=== PATIENT | female | born 1990 | race Caucasian/White ===

== ENCOUNTER 2016-11-22 16:04 | Emergency (ER) | payer OTHER ==
[~2016-11-22] VITALS: Wt 52.0 kg
[2016-11-22 16:57] LABS: URINE BLOOD (Dip) POC 2+ (NEGATIVE)
[2016-11-22] MEDS ORDERED: ACETAMINOPHEN 500 MG TAB PO STA (17:07)
[2016-11-22] MEDS ORDERED: PHEN-538 PO (17:09)
[2016-11-22] MEDS ORDERED: CEPH-443 PO (17:09)
--- NOTE | 2016-11-22 17:15 | ERD ---
ER Documentation Chief Complaint Date/Time DATE: 11/22/16 TIME: 17:13 Chief Complaint DYSURIA X 3 DAYS HPI This 26-year-old female presents with dysuria for last 3 days. She has some mild nausea but no vomiting or fevers. She has flank pain significant abdominal pain. She had some mild left lower abdominal pain 2 days ago but that resolved. Her pain is primarily suprapubic associated with dysuria currently. She has never had a history of UTI. ROS All systems reviewed and are negative except as per history of present illness. Medications Home Meds Active Scripts Phenazopyridine Hcl* (Pyridium*) 200 Mg Tab, 200 MG PO TID Y for URINARY PAIN, # 6 TAB Prov:ROSE COX MD 11/22/16 Cephalexin* (Keflex*) 500 Mg Capsule, 500 MG PO QID for 5 Days, CAP Prov:ROSE COX MD 11/22/16 Allergies Allergies: Coded Allergies: No Known Drug Allergies (Verified Allergy, Unknown, 11/22/16) PMhx/Soc Medical and Surgical Hx: pt denies Medical Hx, pt denies Surgical Hx Physical Exam Vitals Vital Signs Date Time Temp Pulse Resp B/P Pulse Ox O2 Delivery O2 Flow Rate FiO2 11/22/16 16:08 98.0 71 18 114/61 99 Physical Exam Const: [] Alert, [id number]. Head: Atraumatic Eyes: Normal Conjunctiva ENT: Normal External Ears, Nose and Mouth. Neck: Full range of motion..~ No meningismus. Resp: Clear to auscultation bilaterally Cardio: Regular rate and rhythm, no murmurs Abd: Soft, minimal suprapubic tenderness., non distended. Normal bowel sounds Skin: No petechiae or rashes Back: No midline or flank tenderness Ext: No cyanosis, or edema Neur: Awake and alert Psych: Normal Mood and Affect Results 24 hrs Laboratory Tests Test 11/22/16 16:58 Bedside Urine Blood 2+ Bedside Urine Glucose (UA) Negative Bedside Urine Ketones (LAB) Negative Bedside Urine Leukocyte Esterase (L 1+ Bedside Urine Nitrite (LAB) Negative Bedside Urine Protein (LAB) 2+ Bedside Urine pH (LAB) 6.5 Current Medications Medications (Trade) Dose Ordered Sig/Rey Route PRN Reason Start Time Stop Time Status Last Admin Dose Admin Cephalexin (Keflex) 500 mg ONCE ONCE PO 1/27/17 17:30 11/22/16 17:31 UNV Phenazopyridine HCl (Pyridium) 200 mg ONCE ONCE PO 11/22/16 17:30 11/22/16 17:31 UNV Acetaminophen (Tylenol Tab) 500 mg ONCE STAT PO 11/22/16 17:07 11/22/16 17:08 UNV Procedures/MDM Urine shows positive leukocytes and hemoglobin. HCG is negative. Patient has signs and symptoms of acute cystitis. Patient was given Keflex 500 mg by mouth and Pyridium as well as Tylenol. Patient was discharged home with prescription of Keflex, instructions for fluids and Pyridium. Patient is advised to return for fevers, vomiting, new worsening symptoms with primary care doctor this week. The patient was stable with no new complaints during the ER course. Clinically, there is no current evidence to suggest meningitis, sepsis, acute abdomen, pneumonia, acute coronary syndrome, pulmonary embolism, or any other emergent condition appearing to require further evaluation or hospitalization. The patient should certainly return for any new or worsening symptoms per the aftercare instructions. They should otherwise follow-up with her primary care doctor for reevaluation this week. Departure Diagnosis: Primary Impression: UTI (urinary tract infection) Urinary tract infection type: acute cystitis Hematuria presence: with hematuria Qualified Code: N30.01 - Acute cystitis with hematuria Condition: Stable Patient Instructions: Understanding Urinary Tract Infections (UTIs) Additional Instructions: Urine shows signs of infection. Recheck for fevers, vomiting, new or worsening symptoms with primary doctor. Drink plenty of fluids at home. ROSE COX MD Nov 22, 2016 17:15
[2016-11-22] MEDS ORDERED: PHENAZOPYRIDINE 100 MG TAB PO ONE (17:30)
[2016-11-22] MEDS ORDERED: CEPHALEXIN 500 MG CAP PO ONE (17:30)
== END 2016-11-22 17:31 | disposition home or self-care (01) ==
LOC: FTE 16:04
DX: N30.01 Acute cystitis with hematuria (principal)
CPT/HCPCS: 81003; Z7502; Z7610; 99283